=== PATIENT | female | born 1965 | race Hispanic/Latino ===

== ENCOUNTER → 2018-12-26 | Day surgery (SDC) | payer MEDICARE ==
[~2018-12-26] MED LIST: DEXILANT30 MG PO; FENOFIBRATE145 MG PO; FENTANYL CITRATE/PF 100MCG/2 ML INJ ONE; FISH OIL 1,0001 EAC2 PO; GLIPIZIDE5 MG PO; LISINOPRIL2.5 MG PO; METFORMIN HCL500 M2 PO; MIDAZOLAM HCL 2 MG/2 ML VIAL ONE; PROPOFOL IV EMULSION 10 MG/ML 50 ML VIAL ONE; SIMVASTATIN5 MG; TRADJENTA5 MG PO; ULTRAM50 MG PO; [UNRECOGNIZED DRUG - OTHER] PO
--- OUTSIDE RECORDS SUMMARY | 2018-12-26 08:53 | XMS REPORT ---
[facility] Phone Unavailable Care Team Providers Care Digital Sales Assistant Name Role Phone Unavailable Unavailable Problems This patient has no known problems. Allergies, Adverse Reactions, Alerts This patient has no known allergies or adverse reactions. Medications This patient has no known medications. Encounters Start Date/Time End Date/Time Encounter Type Admission Type Attending [facility] Care Department Encounter ID 2019-01-02 00:00:00 2019-01-02 00:00:00 Outpatient [facility] [id number] 2019-01-02 00:00:00 2019-01-02 00:00:00 Outpatient [facility] [id number] 2018-10-19 00:00:00 2018-10-19 00:00:00 Outpatient [facility] [id number] 2018-10-19 00:00:00 2018-10-19 00:00:00 Outpatient [facility] [id number] 2018-09-14 07:59:16 2018-09-14 07:59:16 Outpatient [facility] [id number] 2018-09-13 09:10:38 2018-09-13 09:10:38 Outpatient [facility] [id number] 2018-09-13 07:45:53 2018-09-13 07:45:53 Outpatient [facility] [id number] 2018-09-12 00:00:00 2018-09-12 00:00:00 Outpatient [facility] [id number] 2018-09-07 00:00:00 2018-09-07 00:00:00 Outpatient [facility] [id number] 2018-08-30 07:22:38 2018-08-30 07:22:38 Outpatient [facility] [id number] 2018-08-23 00:00:00 2018-08-23 00:00:00 Outpatient [facility] [id number] 2018-07-21 00:00:00 2018-07-21 00:00:00 Outpatient [facility] [id number] 2018-07-13 00:00:00 2018-07-13 00:00:00 Outpatient [facility] [id number] 2018-07-11 09:09:12 2018-07-11 09:09:12 Outpatient [facility] [id number] 2018-07-10 10:33:06 2018-07-10 10:33:06 Outpatient [facility] [id number] 2018-06-30 08:31:32 2018-06-30 08:31:32 Outpatient [facility] [id number] 2018-06-30 00:00:00 2018-06-30 00:00:00 Outpatient [facility] [id number] 2018-06-29 08:25:58 2018-06-29 08:25:58 Outpatient [facility] [id number] 2018-06-29 00:00:00 2018-06-29 00:00:00 Outpatient [facility] [id number] 2018-06-20 09:23:13 2018-06-20 09:23:13 Outpatient [facility] [id number] 2018-06-20 00:00:00 2018-06-20 00:00:00 Outpatient [facility] [id number] 2018-06-15 14:38:27 2018-06-15 14:38:27 Outpatient [facility] [id number] 2018-06-10 14:56:09 2018-06-10 14:56:09 Outpatient [facility] [id number] 2018-06-09 12:36:15 2018-06-09 12:36:15 Emergency [facility] [id number] 2018-05-09 08:30:42 2018-05-09 08:30:42 Outpatient [facility] [id number] 2018-04-18 08:26:00 2018-04-18 08:26:00 Outpatient [facility] [id number] 2018-04-07 08:27:18 2018-04-07 08:27:18 Outpatient [facility] [id number] 2018-02-22 16:00:51 2018-02-22 16:00:51 Outpatient [facility] [id number] 2018-01-02 08:00:48 2018-01-02 08:00:48 Outpatient [facility] [id number] 2017-12-22 00:00:00 2017-12-22 00:00:00 Outpatient [facility] [id number] 2017-12-20 00:00:00 2017-12-20 00:00:00 Outpatient [facility] [id number] 2017-12-02 00:00:00 2017-12-02 00:00:00 Outpatient [facility] [id number] 2017-11-24 08:09:54 2017-11-24 08:09:54 Outpatient [facility] [id number] 2017-11-17 09:44:32 2017-11-17 09:44:32 Outpatient [facility] [id number] 2017-11-15 00:00:00 2017-11-15 00:00:00 Outpatient [facility] [id number] 2017-11-08 00:00:00 2017-11-08 00:00:00 Outpatient [facility] [id number] 2017-09-29 00:00:00 2017-09-29 00:00:00 Outpatient [facility] [id number] 2017-09-05 11:54:23 2017-09-05 11:54:23 Outpatient [facility] [id number] 2017-09-05 09:47:53 2017-09-05 09:47:53 Outpatient [facility] [id number] 2017-08-19 18:39:39 2017-08-19 18:39:39 Emergency [facility] [id number] 2017-08-19 17:23:48 2017-08-19 17:23:48 Emergency [facility] [id number] 2017-08-15 08:00:02 2017-08-15 08:00:02 Outpatient [facility] [id number] 2017-07-04 14:32:52 2017-07-04 14:32:52 Outpatient [facility] [id number]
[2018-12-26 14:00] VITALS: BP 120/63
== END | disposition home or self-care (01) ==
LOC: OR 08:51
PROVIDERS: ATTEND Internal Medicine Gastroenterology
DX: Z12.11 Encounter for screening for malignant neoplasm of colon (principal); I10 Essential (primary) hypertension; E11.9 Type 2 diabetes mellitus without complications; M81.0 Age-related osteoporosis without current pathological fracture; F41.9 Anxiety disorder, unspecified; Z01.810 Encounter for preprocedural cardiovascular examination; Z79.84 Long term (current) use of oral hypoglycemic drugs; Z80.0 Family history of malignant neoplasm of digestive organs
CPT/HCPCS: 36415; 45378; 82948; 93005; J2250; J2704